=== PATIENT | male | born 1990 | race Two or more races ===

== ENCOUNTER 2024-08-12 09:39 | Emergency (ER) | payer MEDICAID, OTHER ==
[~2024-08-12] VITALS: Ht 170.2 cm; Wt 72.6 kg
[2024-08-12 09:45] VITALS: TEMP 98.6
[2024-08-12] MEDS: IPRATROPIUM NEB FS 0.5 MG/2.5 ML AMPUL.NEB NEB ONE (09:52)
[2024-08-12] MEDS: ALBUTEROL FS 2.5 MG/3 ML VIAL.NEB NEB ONE (09:52)
[2024-08-12 09:55] VITALS: O2SAT 98
[2024-08-12] MEDS ORDERED: IPRATROPIUM NEB FS 0.5 MG/2.5 ML AMPUL.NEB ONE (09:57)
[2024-08-12] MEDS ORDERED: ALBUTEROL FS 2.5 MG/3 ML VIAL.NEB ONE (09:57)
[2024-08-12] MEDS: methylPREDNISolone SOD SUCC 125 MG/2ML VIAL IV ONE (10:02)
[2024-08-12] MEDS: IV NS 0.9% 1,000 ML BAG IV ONE (10:02)
[2024-08-12] MEDS ORDERED: predniSONE 20 MG TABLET ONE (10:04)
[2024-08-12 10:05] VITALS: O2SAT 100
[2024-08-12] MEDS: predniSONE 50 MG TABLET PO ONE (10:10)
[2024-08-12] MEDS ORDERED: ALBU18HF2 INH (10:29)
[2024-08-12] MEDS ORDERED: PRED50TA PO (10:29)
[2024-08-12] MEDS ORDERED: CYCL5TAB PO (10:29)
[2024-08-12] MEDS ORDERED: IBUP-1957 PO (10:29)
[2024-08-12] MEDS ORDERED: BACLOFEN (10 MG) 10 MG TABLET ONE (10:32)
[2024-08-12] MEDS ORDERED: IBUPROFEN 400 MG TABLET ONE (10:33)
[2024-08-12] MEDS: IBUPROFEN 400 MG TABLET PO ONE (10:37)
[2024-08-12] MEDS: BACLOFEN (10 MG) 10 MG TABLET PO ONE (10:40)
[2024-08-12 11:24] VITALS: BP 128/74; O2SAT 98
== END 2024-08-12 11:24 | disposition home or self-care (01) ==
LOC: ER 09:44
DX: S13.4XXA Sprain of ligaments of cervical spine, initial encounter (principal); R06.03 Acute respiratory distress; M79.673 Pain in unspecified foot; J45.901 Unspecified asthma with (acute) exacerbation; Z79.1 Long term (current) use of non-steroidal anti-inflammatories (NSAID); Z79.52 Long term (current) use of systemic steroids; Z88.0 Allergy status to penicillin; X58.XXXA Exposure to other specified factors, initial encounter; Y93.89 Activity, other specified; Y92.89 Other specified places as the place of occurrence of the external cause; Y99.8 Other external cause status
CPT/HCPCS: 99284; 71045; 93005; 94640; J7512; J7030